=== PATIENT | male | born 1985 | race Caucasian/White ===

== ENCOUNTER 2020-08-23 11:17 | Inpatient (IN) | payer OTHER, SELFPAY ==
[2020-08-23] MEDS ORDERED: Calcium Chloride 1 GM/10 ML Abboject SYRINGE ONE ×2 (11:38→12:25)
[2020-08-23 11:50] LABS: INR-International Normal Ratio 1.3; PTT 44.6 sec (22.9-36.1); Prothrombin Time 16.6 sec (12.0-14.7)
[2020-08-23 11:53] LABS: Hemoglobin 13.5 g/dL (14.0-18.0); Mean Corpuscular HGB CONC 33.7 g/dL (32.0-36.0); Mean Corpuscular Hemoglobin 33.1 pg (27.0-31.0); Mean Corpuscular Volume 98.2 fL (78.0-98.0); Platelet Count 233 thou/uL (130-400); RBC Distribution Width 12.3 % (11.5-14.5); Red Blood Cell (RBC) Count 4.07 mill/uL (4.70-6.10)
[2020-08-23 12:00] LABS: Bilirubin Negative (Negative); Blood, Urine Negative (Negative); Clarity Clear (Clear); Glucose, Urine (Dipstick) 500 mg/dL (Negative); Ketone, Urine Negative (Negative); Leukocyte Negative Leu/uL (Negative); Nitrite Negative (Negative); Protein, Urine (Dipstick) Negative (Neg-Trace); Specific Gravity, Urine 1.006 (1.002-1.036); Urobilinogen Normal mg/dL (Less than 2); pH, Urine 5.5 (5.0-9.0)
[2020-08-23 12:01] LABS: Lymphocytes 11 % (21-51); MDiff Complete? YES; Mean Platelet Volume 8.8 fL (7.4-10.4); Monocytes 7 % (0-10); Neutrophil 82 % (42-75); Platelet Morphology Comment Appears Adequate; White Blood Cell (WBC) Count 26.6 thou/uL (4.8-10.8)
[2020-08-23 12:05] LABS: ALT (SGPT) 31 U/L (8-55); AST (SGOT) 30 U/L (5-34); Albumin 3.3 g/dL (3.5-5.0); Alkaline Phosphatase 106 U/L (40-110); Anion Gap 24 mmol/L (10-20); BUN (Urea Nitrogen) 14 mg/dL (8.9-20.6); Bilirubin, Total 0.4 mg/dL (0.2-1.2); CK (CPK) 386 U/L (30-200); Calc. Creatinine Clearance 0 mL/min (70-130); Calcium 8.1 mg/dL (7.8-10.44); Carbon Dioxide 15 mmol/L (22-29); Chloride 105 mmol/L (98-107); Globulin 2.2 g/dL (2.4-3.5); Lipase 37 U/L (8-78); Potassium 3.1 mmol/L (3.5-5.1); Protein, Total 5.5 g/dL (6.0-8.3); Sodium 141 mmol/L (136-145)
[2020-08-23 12:11] LABS: Medtox Reader # READER 1
[2020-08-23 12:12] LABS: Glucose 419 mg/dL (70-105)
[2020-08-23 12:12] LABS: Amphetamine Detected (NotDetected); Barbiturates Screen Not Detected (NotDetected); Benzodiazepine Screen Not Detected (NotDetected); Cocaine Metabolite Screen Not Detected (NotDetected); Medtox Control Line Valid? VALID (VALID); Methadone Not Detected (NotDetected); Methamphetamine Detected (NotDetected); Opiate Screen Detected (NotDetected); Oxycodone Screen Not Detected (NotDetected); Phencyclidine (PCP) Not Detected (NotDetected); THC/Cannabinoid Screen Detected (NotDetected); Tricyclic Screen Not Detected (NotDetected)
[2020-08-23] MEDS ORDERED: Norepinephrine 8 MG/0.9% NS 250 ML ONE (12:12)
[2020-08-23] MEDS ORDERED: Bacitracin Zinc Ointment 30 gm TUBE ONE (12:13)
[2020-08-23] MEDS ORDERED: Tranexamic Acid 1,000 MG/10 ML VIAL ONE (12:17)
[2020-08-23 12:19] LABS: Analyzer IN Cardio ER; Base Excess (BEa) -13.7 mEq/L (-2.0 to +3.0); CO2 Tension 52.2 mmHg (35.0-45.0); Calcium, Ionized (arterial) 1.28 mmol/L (1.12-1.30); Carboxyhemoglobin (COHb) 1.2 gm% (0.0-3.0); Hemoglobin (Hb) 14.8 g/dL (14.0-18.0); Potassium - ABG Lab 3.67 mmol/L (3.70-5.30)
[2020-08-23 12:32] LABS: O2 Tension (PaO2), arterial 58.7 mmHg (80.0-100.0); Puncture Site Arterial Line; pH, Arterial 7.11 (7.35-7.45)
[2020-08-23] MEDS ORDERED: Lidocaine 2% w/Epinephrine 1:200K 20 ML VIAL ONE (12:36)
[2020-08-23] MEDS ORDERED: Rocuronium Bromide 10 MG/ML (10ML VIAL) ONE (12:50)
[2020-08-23] MEDS ORDERED: PHENYLEPHRINE-NS 100 MCG/ML 10 ML SYRINGE ONE ×3 (12:50→14:38)
[2020-08-23] MEDS ORDERED: Albuterol Sulfate HFA (OR ONLY) ONE (12:50)
[2020-08-23] MEDS ORDERED: Dexamethasone 20 MG/5 ML VIAL ONE (12:50)
[2020-08-23] MEDS ORDERED: Vecuronium 10 MG VIAL ONE (12:50)
[2020-08-23] MEDS ORDERED: Ondansetron PF 4 MG/2 ML Vial ONE (12:50)
[2020-08-23] MEDS ORDERED: Sodium Bicarbonate 2.5 MEQ/5 ML VIAL ONE ×2 (13:12→13:28)
[2020-08-23] MEDS ORDERED: Sodium Bicarb 50 MEQ/50 ML Abboject 8.4% SYRINGE ONE ×2 (13:12→13:30)
[2020-08-23] MEDS ORDERED: Iopamidol-370 76% 500 ML 1 ML ONE (13:34)
[2020-08-23 14:04] LABS: SARS-CoV-2 NAA Rapid Test Not Detected (NotDetected)
[2020-08-23] MEDS ORDERED: Insulin Regular 300 UNITS/3 ML VIAL SC PRN (14:34)
[2020-08-23] MEDS ORDERED: Dextrose 50% Abboject 50 ML SYRINGE SLOW IVP PRN (14:34)
[2020-08-23] MEDS ORDERED: Dextrose 5% in Water 1,000 ML IV PRN (14:34)
[2020-08-23] MEDS ORDERED: Sodium Chloride 0.9% 1,000 ML IV SCH (14:45)
[2020-08-23] MEDS ORDERED: Acetaminophen 650 MG/20.3 ML UDCUP PO PRN (14:45)
[2020-08-23] MEDS ORDERED: TETANUS AND DIPHTHERIA TOX/PF 0.5 ML DISP.SYRIN IM ONE (15:00)
[2020-08-23 15:31] LABS: #Basophils 0.1 thou/uL (0.0-0.2); #Lymphocytes 0.6 thou/uL (1.20-3.40); #Monocytes 0.1 thou/uL (0.11-0.59); #Neutrophils 6.9 thou/uL (1.40-6.50); %Basophils 0.8 % (0.0-1.0); %Eosinophils 0.5 % (0.0-10.0); %Lymphocytes 7.6 % (21.0-51.0); %Monocytes 1.1 % (0.0-10.0); Hemoglobin 16.7 g/dL (14.0-18.0); Mean Corpuscular HGB CONC 33.8 g/dL (32.0-36.0); Mean Corpuscular Hemoglobin 32.2 pg (27.0-31.0); Mean Corpuscular Volume 95.2 fL (78.0-98.0); Mean Platelet Volume 8.3 fL (7.4-10.4); Platelet Count 188 thou/uL (130-400); RBC Distribution Width 12.8 % (11.5-14.5); Red Blood Cell (RBC) Count 5.18 mill/uL (4.70-6.10); White Blood Cell (WBC) Count 7.6 thou/uL (4.8-10.8)
[2020-08-23] MEDS: Levothyroxine Sodium 400 MCG in Sodium Chloride 0.9% 100 ML IVPB SCH ×2 (15:42→21:16)
[2020-08-23 15:45] LABS: Lactic Acid 2.6 mmol/L (0.5-2.2)
[2020-08-23 15:46] LABS: Lactic Acid 2.6 mmol/L (0.5-2.2)
[2020-08-23 15:49] LABS: Anion Gap 11 mmol/L (10-20); BUN (Urea Nitrogen) 14 mg/dL (8.9-20.6); Calc. Creatinine Clearance 0 mL/min (70-130); Carbon Dioxide 23 mmol/L (22-29); Chloride 117 mmol/L (98-107); Glucose 119 mg/dL (70-105); Potassium 4.3 mmol/L (3.5-5.1); Sodium 147 mmol/L (136-145)
[2020-08-23 15:52] LABS: Alcohol Less than 10 mg/dL (Less than 10); Magnesium 1.7 mg/dL (1.6-2.6); Phosphorus 3.5 mg/dL (2.3-4.7)
[2020-08-23] MEDS: Acetaminophen 650 MG/20.3 ML UDCUP PO SCH ×2 (16:36→20:58)
[2020-08-23] MEDS ORDERED: Magnesium 2 GM/50 ML 2 GM in Premix Bag 1 BAG IVPB SCH (17:30)
[2020-08-23] MEDS ORDERED: Norepinephrine 8 MG/0.9% NS 250 ML IVPB SCH (18:15)
[2020-08-23] MEDS: Lactated Ringer's 1,000 ML IV SCH (18:42)
[2020-08-23 19:33] LABS: Actual Bicarbonate (HCO3a) 24.1 mEq/L (22-28); Base Excess (BEa) -3.1 mEq/L (-2.0 to +3.0); CO2 Tension 50.6 mmHg (35.0-45.0); Calcium, Ionized (arterial) 1.21 mmol/L (1.12-1.30); Carboxyhemoglobin (COHb) 0.4 gm% (0.0-3.0); Potassium - ABG Lab 4.65 mmol/L (3.70-5.30)
[2020-08-23 19:35] LABS: O2 Tension (PaO2), arterial 525.9 mmHg (80.0-100.0); Puncture Site Arterial Line
[2020-08-23] MEDS: Norepinephrine 8 MG/0.9% NS 250 ML IVPB PRN (19:59)
[2020-08-23] MEDS: Famotidine/PF 20 mg/2ml Vial SLOW IVP SCH (20:59)
[2020-08-23 21:46] LABS: Actual Bicarbonate (HCO3a) 22.3 mEq/L (22-28); Base Excess (BEa) -2.6 mEq/L (-2.0 to +3.0); CO2 Tension 39.6 mmHg (35.0-45.0); Carboxyhemoglobin (COHb) 0.4 gm% (0.0-3.0); Hemoglobin (Hb) 16.9 g/dL (14.0-18.0); Potassium - ABG Lab 4.12 mmol/L (3.70-5.30); pH, Arterial 7.37 (7.35-7.45)
[2020-08-23 21:47] LABS: Puncture Site Arterial Line
[2020-08-23] MEDS ORDERED: Boostrix 0.5 ML (Tdap) VIAL IM ONE (22:15)
[2020-08-24 03:17] LABS: Hemoglobin 14.2 g/dL (14.0-18.0); Mean Corpuscular HGB CONC 34.2 g/dL (32.0-36.0); Mean Corpuscular Hemoglobin 32.3 pg (27.0-31.0); Mean Corpuscular Volume 94.2 fL (78.0-98.0); Mean Platelet Volume 9.1 fL (7.4-10.4); Platelet Count 157 thou/uL (130-400); RBC Distribution Width 12.9 % (11.5-14.5); Red Blood Cell (RBC) Count 4.41 mill/uL (4.70-6.10); White Blood Cell (WBC) Count 14.7 thou/uL (4.8-10.8)
[2020-08-24 03:20] LABS: INR-International Normal Ratio 1.3; Prothrombin Time 16.9 sec (12.0-14.7)
[2020-08-24 03:21] LABS: PTT 38.3 sec (22.9-36.1)
[2020-08-24] MEDS: Levothyroxine Sodium 400 MCG in Sodium Chloride 0.9% 100 ML IVPB SCH (03:36)
[2020-08-24 03:37] LABS: Band 26 % (5-11); Lymphocytes 2 % (21-51); MDiff Complete? YES; Monocytes 3 % (0-10); Neutrophil 68 % (42-75); Platelet Morphology Comment Appears Adequate; RBC Morphology Normal; Reactive Lymphocytes 1 % (0-10)
[2020-08-24 03:54] LABS: Anion Gap 15 mmol/L (10-20); BUN (Urea Nitrogen) 15 mg/dL (8.9-20.6); Calc. Creatinine Clearance 113 mL/min (70-130); Calcium 8.8 mg/dL (7.8-10.44); Carbon Dioxide 23 mmol/L (22-29); Glucose 146 mg/dL (70-105); Magnesium 2.4 mg/dL (1.6-2.6); Potassium 4.1 mmol/L (3.5-5.1); Sodium 160 mmol/L (136-145)
[2020-08-24 03:55] LABS: Phosphorus 2.6 mg/dL (2.3-4.7)
[2020-08-24 03:57] LABS: Chloride 126 mmol/L (98-107)
[2020-08-24] MEDS: Acetaminophen 650 MG/20.3 ML UDCUP PO SCH ×2 (05:36→10:34)
[2020-08-24] MEDS: Lactated Ringer's 1,000 ML IV SCH (06:08)
[2020-08-24 07:27] LABS: Actual Bicarbonate (HCO3a) 23.4 mEq/L (22-28); Base Excess (BEa) -0.7 mEq/L (-2.0 to +3.0); CO2 Tension 37.2 mmHg (35.0-45.0); Calcium, Ionized (arterial) 1.26 mmol/L (1.12-1.30); Hemoglobin (Hb) 14.1 g/dL (14.0-18.0); O2 Tension (PaO2), arterial 122.4 mmHg (80.0-100.0); pH, Arterial 7.42 (7.35-7.45)
[2020-08-24 07:43] LABS: Puncture Site Arterial Line
[2020-08-24] MEDS ORDERED: Levothyroxine Sodium 400 MCG, Admixture Fee 1 EACH in Sodium Chloride 0.9% 100 ML IVPB SCH (08:00)
[2020-08-24] MEDS ORDERED: CEFAZOLIN 2 GM in Premix Bag 1 BAG IVPB SCH (08:00)
[2020-08-24] MEDS: Norepinephrine 8 MG/0.9% NS 250 ML IVPB PRN (08:06)
[2020-08-24 08:17] LABS: Phosphorus 1.8 mg/dL (2.3-4.7)
[2020-08-24] MEDS ORDERED: Dextrose 5% in Water 1,000 ML IV SCH (09:30)
[2020-08-24 10:12] VITALS: TEMP 98.1
[2020-08-24] MEDS: Famotidine/PF 20 mg/2ml Vial SLOW IVP SCH (10:33)
[2020-08-24 13:03] LABS: Anion Gap 15 mmol/L (10-20); BUN (Urea Nitrogen) 16 mg/dL (8.9-20.6); Calc. Creatinine Clearance 107 mL/min (70-130); Calcium 8.6 mg/dL (7.8-10.44); Carbon Dioxide 21 mmol/L (22-29); Chloride 129 mmol/L (98-107); Glucose 177 mg/dL (70-105); Potassium 4.2 mmol/L (3.5-5.1); Sodium 161 mmol/L (136-145)
[2020-08-24 14:04] VITALS: BMI 24.5
[2020-08-24 14:39] VITALS: BP 126/68
[2020-08-31 09:39] LABS: Actual Bicarbonate (HCO3a) 22.7 mEq/L (22-28); Analyzer IN Cardio OR; Base Excess (BEa) -9.2 mEq/L (-2.0 to +3.0); Calcium, Ionized (arterial) 1.63 mmol/L (1.12-1.30); Carboxyhemoglobin (COHb) 1.2 gm% (0.0-3.0); Hemoglobin (Hb) 17.5 g/dL (14.0-18.0); O2 Tension (PaO2), arterial 66.6 mmHg (80.0-100.0); Potassium - ABG Lab 4.79 mmol/L (3.70-5.30)
[2020-08-31 09:40] LABS: Actual Bicarbonate (HCO3a) 22.3 mEq/L (22-28); Analyzer IN Cardio OR; Base Excess (BEa) -6.7 mEq/L (-2.0 to +3.0); Calcium, Ionized (arterial) 1.11 mmol/L (1.12-1.30); Carboxyhemoglobin (COHb) 1.2 gm% (0.0-3.0); Hemoglobin (Hb) 14.7 g/dL (14.0-18.0); Potassium - ABG Lab 3.38 mmol/L (3.70-5.30)
[2020-08-31 09:41] LABS: CO2 Tension 76.3 mmHg (35.0-45.0); pH, Arterial 7.09 (7.35-7.45)
[2020-08-31 09:42] LABS: Puncture Site Arterial Line
[2020-08-31 09:45] LABS: O2 Tension (PaO2), arterial 44.9 mmHg (80.0-100.0); Puncture Site Arterial Line
== END 2020-08-24 14:18 | disposition expired | DRG 25 ==
LOC: ERS 11:17 → EDBD 11:17 → SDC 12:53 → CCU 14:34
PROVIDERS: ADMIT Surgery; ATTEND Surgery
PROC: 00C30ZZ Extirpation of Matter from Intracranial Epidural Space, Open Approach (ICD-10-PCS; principal; 2020-08-23)
PROC: 00N00ZZ Release Brain, Open Approach (ICD-10-PCS; 2020-08-23)
PROC: 00Q20ZZ Repair Dura Mater, Open Approach (ICD-10-PCS; 2020-08-23)
PROC: 5A1935Z Respiratory Ventilation, Less than 24 Consecutive Hours (ICD-10-PCS; 2020-08-23)
PROC: 3E033XZ Introduction of Vasopressor into Peripheral Vein, Percutaneous Approach (ICD-10-PCS; 2020-08-23)
PROC: 30233L1 Transfusion of Nonautologous Fresh Plasma into Peripheral Vein, Percutaneous Approach (ICD-10-PCS; 2020-08-23)
PROC: 30233N1 Transfusion of Nonautologous Red Blood Cells into Peripheral Vein, Percutaneous Approach (ICD-10-PCS; 2020-08-23)
PROC: 30233K1 Transfusion of Nonautologous Frozen Plasma into Peripheral Vein, Percutaneous Approach (ICD-10-PCS; 2020-08-23)
PROC: 05H633Z Insertion of Infusion Device into Left Subclavian Vein, Percutaneous Approach (ICD-10-PCS; 2020-08-23)
PROC: 03HY32Z Insertion of Monitoring Device into Upper Artery, Percutaneous Approach (ICD-10-PCS; 2020-08-23)
PROC: 0B9J8ZX Drainage of Left Lower Lung Lobe, Via Natural or Artificial Opening Endoscopic, Diagnostic (ICD-10-PCS; 2020-08-23)
PROC: 0B9C8ZX Drainage of Right Upper Lung Lobe, Via Natural or Artificial Opening Endoscopic, Diagnostic (ICD-10-PCS; 2020-08-23)
PROC: 0B9G8ZX Drainage of Left Upper Lung Lobe, Via Natural or Artificial Opening Endoscopic, Diagnostic (ICD-10-PCS; 2020-08-23)
PROC: 0B9F8ZX Drainage of Right Lower Lung Lobe, Via Natural or Artificial Opening Endoscopic, Diagnostic (ICD-10-PCS; 2020-08-23)
DX: S06.4X0A Epidural hemorrhage without loss of consciousness, initial encounter (principal); J96.00 Acute respiratory failure, unspecified whether with hypoxia or hypercapnia; G93.5 Compression of brain; J69.0 Pneumonitis due to inhalation of food and vomit; S06.1X0A Traumatic cerebral edema without loss of consciousness, initial encounter; S22.41XA Multiple fractures of ribs, right side, initial encounter for closed fracture; E87.2 Acidosis; N17.9 Acute kidney failure, unspecified; E23.2 Diabetes insipidus; E87.0 Hyperosmolality and hypernatremia; V29.40XA Motorcycle driver injured in collision with unspecified motor vehicles in traffic accident, initial encounter; R40.2112 Coma scale, eyes open, never, at arrival to emergency department; R40.2312 Coma scale, best motor response, none, at arrival to emergency department; R40.2212 Coma scale, best verbal response, none, at arrival to emergency department; I46.9 Cardiac arrest, cause unspecified; Z20.822 Contact with and (suspected) exposure to COVID-19; I95.9 Hypotension, unspecified; G93.2 Benign intracranial hypertension
CPT/HCPCS: 0240U; 31500; 31624; 36415; 36416; 36430; 36556; 51702; 70450; 70486; 71045; 71260; 72125; 74018; 74177; 78610; 80048; 80053; 80306; 80307; 81003; 82550; 82805; 83605; 83690; 83735; 83930; 83935; 84100; 85025; 85610; 85730; 86850; 86900; 86901; 90715; 92950; 93970; 94002; 94003; 94640; 96365; 96374; 96375; 96376; A9521; G0390; J0690; J1100; J2405; J2597; J3475; J3490; J7030; J7620; J7799; P9016; P9045; P9059; Q9967; S0028

== ENCOUNTER 2020-08-24 14:18 | Day surgery (SDC) | payer OTHER ==
[~2020-08-24 14:18] MED LIST changes: +Iopamidol 370 76% 100 ML VIAL ONE; -Lidocaine 1% (PF) 30 ML VIAL ONE
[2020-08-24 15:38] VITALS: BMI 25.1
[2020-08-24] MEDS ORDERED: Nitroglycerin 100MG/250ML BOT 250 ML ONE (18:14)
[2020-08-24] MEDS ORDERED: Nitroglycerin 0.4 MG TAB (25 Tab Bottle) SL PRN (18:27)
[2020-08-24] MEDS ORDERED: Sodium Chloride 0.9% 200 ML IV PRN (18:27)
[2020-08-24] MEDS ORDERED: Albuterol Sulfate 2.5 mg/0.5 ml Neb NEB PRN (19:10)
[2020-08-24] MEDS ORDERED: Norepinephrine 8 MG/0.9% NS 250 ML IVPB SCH (19:15)
[2020-08-24] MEDS ORDERED: methylPREDNISolone Sod Succ 2 gm/30 ml Vial IVPB SCH (19:15)
[2020-08-24] MEDS ORDERED: methylPREDNISolone Sod Succ 2 GM in Sodium Chloride 0.9% 100 ML IVPB SCH (19:30)
[2020-08-24] MEDS ORDERED: HUMULIN R 100 UNITS in Sodium Chloride 0.9% 100 ML IVPB SCH (19:30)
[2020-08-24] MEDS ORDERED: Sodium Chloride 0.45% 1,000 ML IV SCH (19:30)
[2020-08-24] MEDS: Levothyroxine Sodium 400 MCG in Sodium Chloride 0.9% 100 ML IVPB SCH (20:04)
[2020-08-24] MEDS: Phytonadione 10 MG/ML AMP SLOW IVP SCH ×2 (20:04→23:40)
[2020-08-24 20:20] LABS: INR-International Normal Ratio 1.7; PTT 40.2 sec (22.9-36.1); Prothrombin Time 20.7 sec (12.0-14.7)
[2020-08-24 20:32] LABS: Lactic Acid 2.5 mmol/L (0.5-2.2)
[2020-08-24 20:40] LABS: ALT (SGPT) 24 U/L (8-55); AST (SGOT) 41 U/L (5-34); Bilirubin, Direct 0.3 mg/dL (0.1-0.3)
[2020-08-24 20:42] LABS: ALT (SGPT) 24 U/L (8-55); AST (SGOT) 42 U/L (5-34); Albumin 2.9 g/dL (3.5-5.0); Alkaline Phosphatase 57 U/L (40-110); Anion Gap 10 mmol/L (10-20); BUN (Urea Nitrogen) 14 mg/dL (8.9-20.6); Bilirubin, Total 0.5 mg/dL (0.2-1.2); CK (CPK) 460 U/L (30-200); Calc. Creatinine Clearance 127 mL/min (70-130); Calcium 8.2 mg/dL (7.8-10.44); Carbon Dioxide 28 mmol/L (22-29); Chloride 124 mmol/L (98-107); Gamma GT (GGT) 12 U/L (12-64); Globulin 1.7 g/dL (2.4-3.5); Glucose 140 mg/dL (70-105); Lipase 6 U/L (8-78); Magnesium 2.1 mg/dL (1.6-2.6); Protein, Total 4.6 g/dL (6.0-8.3); Sodium 158 mmol/L (136-145)
[2020-08-24 20:47] LABS: Band 6 % (5-11); Hemoglobin 10.9 g/dL (14.0-18.0); Lymphocytes 11 % (21-51); MDiff Complete? YES; Mean Corpuscular HGB CONC 33.5 g/dL (32.0-36.0); Mean Corpuscular Volume 95.6 fL (78.0-98.0); Mean Platelet Volume 9.4 fL (7.4-10.4); Monocytes 4 % (0-10); Neutrophil 79 % (42-75); Platelet Count 99 thou/uL (130-400); Platelet Morphology Comment Appears Decreased; White Blood Cell (WBC) Count 22.3 thou/uL (4.8-10.8)
[2020-08-24 20:50] LABS: CKMB 10.3 ng/mL (0-6.6); Troponin I 0.311 ng/mL (< 0.028)
[2020-08-24 20:51] LABS: Bacteria/HPF None Seen HPF (None Seen); Bilirubin Negative (Negative); Blood, Urine Negative (Negative); Clarity Clear (Clear); Glucose, Urine (Dipstick) Normal (Negative); Ketone, Urine Negative (Negative); Leukocyte Negative Leu/uL (Negative); Nitrite Negative (Negative); Protein, Urine (Dipstick) 20 mg/dL (Neg-Trace); RBC/HPF 0-3 HPF (0-3); Squamous Epithelial None Seen HPF (0-3); Urobilinogen Normal mg/dL (Less than 2); WBC/HPF 0-3 HPF (0-3); pH, Urine 7.5 (5.0-9.0)
[2020-08-24 20:52] LABS: Specific Gravity, Urine 1.048 (1.002-1.036)
[2020-08-24] MEDS ORDERED: Potassium Chloride 20 MEQ in Premix Bag 1 BAG IVPB SCH (21:30)
[2020-08-24] MEDS ORDERED: Albumin 25% 25 GM/100 ML BOT IVPB SCH (21:30)
[2020-08-24] MEDS ORDERED: Sodium Phosphate 20 MMOL in Sodium Chloride 0.9% 100 ML IVPB SCH (21:30)
[2020-08-24] MEDS ORDERED: Magnesium 2 GM/50 ML 2 GM in Premix Bag 1 BAG IVPB SCH (21:30)
[2020-08-24] MEDS: Albuterol Sulfate 2.5 mg/0.5 ml Neb NEB SCH (22:08)
[2020-08-24] MEDS: Piperacillin/Tazobactam 3.375 GM in Sodium Chloride 0.9% 100 ML IVPB SCH (23:39)
[2020-08-25 01:50] LABS: INR-International Normal Ratio 1.8; Prothrombin Time 20.8 sec (12.0-14.7)
[2020-08-25 01:51] LABS: PTT 45.4 sec (22.9-36.1)
[2020-08-25 01:56] LABS: Lactic Acid 2.5 mmol/L (0.5-2.2)
[2020-08-25 02:00] LABS: Bilirubin, Direct 0.6 mg/dL (0.1-0.3); Magnesium 2.6 mg/dL (1.6-2.6)
[2020-08-25 02:01] LABS: #Lymphocytes 0.7 thou/uL (1.20-3.40); #Monocytes 0.3 thou/uL (0.11-0.59); #Neutrophils 15.2 thou/uL (1.40-6.50); %Basophils 0.1 % (0.0-1.0); %Eosinophils 0.2 % (0.0-10.0); %Lymphocytes 4.2 % (21.0-51.0); %Monocytes 1.8 % (0.0-10.0); %Neutrophils 93.8 % (42.0-75.0); Hemoglobin 9.7 g/dL (14.0-18.0); Mean Corpuscular HGB CONC 33.8 g/dL (32.0-36.0); Mean Corpuscular Hemoglobin 32.4 pg (27.0-31.0); Mean Corpuscular Volume 95.6 fL (78.0-98.0); Mean Platelet Volume 9.6 fL (7.4-10.4); Platelet Count 94 thou/uL (130-400); RBC Distribution Width 12.9 % (11.5-14.5); Red Blood Cell (RBC) Count 2.98 mill/uL (4.70-6.10); White Blood Cell (WBC) Count 16.2 thou/uL (4.8-10.8)
[2020-08-25 02:06] LABS: Troponin I 0.275 ng/mL (< 0.028)
[2020-08-25 02:07] LABS: ALT (SGPT) 23 U/L (8-55); AST (SGOT) 43 U/L (5-34); Albumin 3.6 g/dL (3.5-5.0); Alkaline Phosphatase 55 U/L (40-110); Anion Gap 14 mmol/L (10-20); BUN (Urea Nitrogen) 13 mg/dL (8.9-20.6); Calc. Creatinine Clearance 122 mL/min (70-130); Calcium 8.8 mg/dL (7.8-10.44); Carbon Dioxide 24 mmol/L (22-29); Chloride 122 mmol/L (98-107); Globulin 1.8 g/dL (2.4-3.5); Glucose 165 mg/dL (70-105); Phosphorus 2.9 mg/dL (2.3-4.7); Potassium 3.4 mmol/L (3.5-5.1); Protein, Total 5.4 g/dL (6.0-8.3); Sodium 157 mmol/L (136-145)
[2020-08-25 02:07] LABS: CKMB 8.7 ng/mL (0-6.6); Critical Call CKMB RESULT DECREASING
[2020-08-25] MEDS: Albuterol Sulfate 2.5 mg/0.5 ml Neb NEB SCH ×2 (02:20→07:37)
[2020-08-25] MEDS: Levothyroxine Sodium 400 MCG in Sodium Chloride 0.9% 100 ML IVPB SCH ×2 (02:23→08:06)
[2020-08-25] MEDS: Potassium Chloride 20 MEQ in Premix Bag 1 BAG IVPB SCH ×2 (02:53→03:38)
[2020-08-25] MEDS: Piperacillin/Tazobactam 3.375 GM in Sodium Chloride 0.9% 100 ML IVPB SCH (05:35)
[2020-08-25 07:40] VITALS: BP 103/92
[2020-08-25 07:44] LABS: Bilirubin Negative (Negative); Blood, Urine Trace (Negative); Glucose, Urine (Dipstick) Negative (Negative); Ketone, Urine Negative (Negative); Leukocyte Negative (Negative); Nitrite Negative (Negative); Protein, Urine (Dipstick) Negative (Neg-Trace); Urobilinogen 0.2 mg/dL (Less than 2)
[2020-08-25 07:50] LABS: Clarity Hazy (Clear)
[2020-08-25 07:51] LABS: Bacteria/HPF None Seen HPF (None Seen); RBC/HPF None Seen HPF (0-3); Renal Epithelial 0-3 HPF (None Seen); Squamous Epithelial 0-3 HPF (0-3); WBC/HPF 0-3 HPF (0-3)
[2020-08-25 10:19] LABS: Hemoglobin 9.4 g/dL (14.0-18.0); Mean Corpuscular HGB CONC 33.9 g/dL (32.0-36.0); Mean Corpuscular Hemoglobin 32.5 pg (27.0-31.0); Mean Corpuscular Volume 95.8 fL (78.0-98.0); Red Blood Cell (RBC) Count 2.88 mill/uL (4.70-6.10)
[2020-08-25 10:25] LABS: INR-International Normal Ratio 1.6; PTT 41.4 sec (22.9-36.1); Prothrombin Time 19.5 sec (12.0-14.7)
[2020-08-25 10:46] LABS: Band 14 % (5-11); Lymphocytes 6 % (21-51); MDiff Complete? YES; Mean Platelet Volume 9.6 fL (7.4-10.4); Metamyelocyte 3 % (0-0); Neutrophil 77 % (42-75); Platelet Count 94 thou/uL (130-400); Platelet Morphology Comment Appears Decreased
[2020-08-25 10:55] LABS: ALT (SGPT) 24 U/L (8-55); AST (SGOT) 33 U/L (5-34); Albumin 3.5 g/dL (3.5-5.0); Alkaline Phosphatase 59 U/L (40-110); Anion Gap 10 mmol/L (10-20); BUN (Urea Nitrogen) 12 mg/dL (8.9-20.6); Bilirubin, Direct 0.3 mg/dL (0.1-0.3); Bilirubin, Total 0.5 mg/dL (0.2-1.2); Calc. Creatinine Clearance 106 mL/min (70-130); Calcium 8.6 mg/dL (7.8-10.44); Carbon Dioxide 27 mmol/L (22-29); Chloride 124 mmol/L (98-107); Globulin 1.9 g/dL (2.4-3.5); Glucose 195 mg/dL (70-105); Magnesium 2.4 mg/dL (1.6-2.6); Potassium 3.8 mmol/L (3.5-5.1); Protein, Total 5.4 g/dL (6.0-8.3); Sodium 157 mmol/L (136-145)
== END 2020-08-25 10:27 | disposition short-term general hospital (02) ==
LOC: CCU 14:18 → SDC 14:18 → CCU 15:19 → SDC 15:19
PROC: 4A023N8 Measurement of Cardiac Sampling and Pressure, Bilateral, Percutaneous Approach (ICD-10-PCS; principal; 2020-08-25)
PROC: B2111ZZ Fluoroscopy of Multiple Coronary Arteries using Low Osmolar Contrast (ICD-10-PCS; principal; 2020-08-25)
DX: Z52.9 Donor of unspecified organ or tissue
CPT/HCPCS: 31624; 71045; 76942; 81001; 82150; 82248; 82330; 82550; 82553; 82977; 83036; 83605; 83615; 83690; 83735; 83930; 84100; 84450; 84460; 84484; 85025; 85384; 85610; 85730; 87205; 93005; 93010; 93306; 93460; 94002; 94003; 94760; J2001; J2543; J2930; J3430; J3475; J3480; J3490; J7611; P9047; Q9967

== ENCOUNTER → 2020-08-24 | Day surgery (SDC) | payer OTHER ==
[~2020-08-24] MED LIST: Lidocaine 1% (PF) 30 ML VIAL ONE
[2020-08-24 19:16] LABS: Actual Bicarbonate (HCO3a) 29.1 mEq/L (22-28); Base Excess (BEa) 5.2 mEq/L (-2.0 to +3.0); CO2 Tension 40.5 mmHg (35.0-45.0); Calcium, Ionized (arterial) 1.17 mmol/L (1.12-1.30); Carboxyhemoglobin (COHb) 0.3 gm% (0.0-3.0); Hemoglobin (Hb) 11.2 g/dL (14.0-18.0); O2 Tension (PaO2), arterial 130.3 mmHg (80.0-100.0); Potassium - ABG Lab 3.67 mmol/L (3.70-5.30); pH, Arterial 7.48 (7.35-7.45)
[2020-08-24 20:34] LABS: Actual Bicarbonate (HCO3a) 28.8 mEq/L (22-28); Base Excess (BEa) 5.2 mEq/L (-2.0 to +3.0); CO2 Tension 38.4 mmHg (35.0-45.0); Calcium, Ionized (arterial) 1.16 mmol/L (1.12-1.30); Carboxyhemoglobin (COHb) 0.3 gm% (0.0-3.0); Hemoglobin (Hb) 11.4 g/dL (14.0-18.0); Potassium - ABG Lab 3.67 mmol/L (3.70-5.30); pH, Arterial 7.49 (7.35-7.45)
[2020-08-24 20:39] LABS: Puncture Site Arterial Line
[2020-08-24 20:40] LABS: ALV-art Gradient 139.925 mmHg (0-20)
[2020-08-24 20:42] LABS: O2 Tension (PaO2), arterial 597.2 mmHg (80.0-100.0); Puncture Site RRA
[2020-08-25 01:41] LABS: Actual Bicarbonate (HCO3a) 23.8 mEq/L (22-28); Analyzer IN Cardio ER; Base Excess (BEa) 0.4 mEq/L (-2.0 to +3.0); Calcium, Ionized (arterial) 1.17 mmol/L (1.12-1.30); Carboxyhemoglobin (COHb) 0.1 gm% (0.0-3.0); Hemoglobin (Hb) 10.3 g/dL (14.0-18.0); O2 Tension (PaO2), arterial 482.3 mmHg (80.0-100.0); Potassium - ABG Lab 3.51 mmol/L (3.70-5.30); pH, Arterial 7.46 (7.35-7.45)
[2020-08-25 01:42] LABS: Puncture Site RRA
== END ==
LOC: SDC 14:18
DX: Z52.9 Donor of unspecified organ or tissue (principal)
CPT/HCPCS: 36600; 82805; J2001